=== PATIENT | male | born 1950 | race Caucasian/White ===

== ENCOUNTER 2016-12-22 13:55 | Emergency (ER) | payer OTHER ==
[~2016-12-22] VITALS: Ht 188 cm; Wt 81.0 kg
[~2016-12-22 13:55] MED LIST: PANT40TA4 PO
[2016-12-22 13:58] VITALS: Ht 188 cm; Wt 81.0 kg
[2016-12-22] MEDS ORDERED: CEFTRIAXONE 1 GM/50 ML (PMX) 50 ML IVPB ONE (15:00)
[2016-12-22] MEDS ORDERED: ASPI-664 PO (15:22)
[2016-12-22] MEDS ORDERED: OMEP40CA6 PO (15:22)
[2016-12-22 15:33] LABS: ADD SCAN DIFF NO
[2016-12-22 15:35] LABS: ABNORMAL IP MESSAGE 1; BASOPHILS % 0.4 % (0.0-2.0); EOSINOPHILS # 0.1 10^3/ul (0.0-0.5); EOSINOPHILS % 1.1 % (0.0-7.0); HEMATOCRIT 28.2 % (42.0-52.0); HEMOGLOBIN 8.1 g/dl (14.0-18.0); LYMPHOCYTES # 0.7 10^3/ul (0.8-2.9); LYMPHOCYTES % 8.8 % (15.0-51.0); MEAN CORPUSCULAR HEMOGLOBIN 19.6 pg (29.0-33.0); MEAN CORPUSCULAR HGB CONC 28.7 g/dl (32.0-37.0); MEAN CORPUSCULAR VOLUME 68.1 fl (82.0-101.0); MEAN PLATELET VOLUME 10.2 fl (7.4-10.4); MONOCYTE # 0.6 10^3/ul (0.3-0.9); MONOCYTES % 6.8 % (0.0-11.0); NEUTROPHIL # 6.7 10^3/ul (1.6-7.5); NEUTROPHILS % 82.2 % (39.0-77.0); PLATELET COUNT 539 10^3/UL (140-415); RED BLOOD COUNT 4.14 10^6/ul (4.70-6.10); RED CELL DISTRIBUTION WIDTH 18.9 % (11.5-14.5); WHITE BLOOD COUNT 8.2 10^3/ul (4.8-10.8)
[2016-12-22 15:45] LABS: INR 1.02; PROTIME 13.4 Sec (12.2-14.2)
[2016-12-22 15:46] LABS: ALBUMIN 3.9 g/dl (3.3-4.9); CHLORIDE 105 mmol/L (97-110); PARTIAL THROMBOPLASTIN TIME 25.6 Sec (25.0-35.0); POTASSIUM 4.1 mmol/L (3.5-5.1); SODIUM 143 mmol/L (135-144)
[2016-12-22 15:48] LABS: CREATININE 0.94 mg/dl (0.61-1.24)
[2016-12-22 15:49] LABS: ALANINE AMINOTRANSFERASE 27 IU/L (13-69); ALBUMIN/GLOBULIN RATIO 0.95; ALKALINE PHOSPHATASE 109 IU/L (42-121); ANION GAP 16 (8-16); ASPARTATE AMINO TRANSFERASE 19 IU/L (15-46); BLOOD UREA NITROGEN 25 mg/dl (7-20); CALCIUM 9.3 mg/dl (8.4-10.2); CARBON DIOXIDE 26 mmol/L (21-31); GLUCOSE 108 mg/dl (70-220)
[2016-12-22 16:04] LABS: ADD UMIC YES; URINE BILIRUBIN (Dip) NEGATIVE (NEGATIVE); URINE BLOOD (Dip) 1+ (NEGATIVE); URINE COLOR LT. YELLOW (YELLOW); URINE GLUCOSE (Dip) NEGATIVE (NEGATIVE); URINE KETONES (Dip) TRACE (NEGATIVE); URINE LEUKOCYTE ESTERASE (Dip) 1+ (NEGATIVE); URINE NITRITE (Dip) POSITIVE (NEGATIVE); URINE TOTAL PROTEIN (Dip) NEGATIVE (NEGATIVE); URINE UROBILINOGEN (Dip) 0.2 E.U./dL (0.1-1.0)
[2016-12-22 16:04] LABS: TROPONIN-I < 0.012 ng/ml (0.00-0.12)
[2016-12-22 16:20] LABS: BACTERIA,URINE FEW; URINE RBCS 0-2 /HPF (0)
[2016-12-22] MEDS ORDERED: IRON1TAB78 PO (16:20)
[2016-12-22] MEDS ORDERED: CEPH-443 PO (16:20)
[2016-12-22 16:32] VITALS: BP 141/87; PULSE 74; RESP 15; TEMP 98.1
--- NOTE | 2016-12-22 19:46 | ERD ---
ER Documentation Chief Complaint Date/Time DATE: 12/22/16 TIME: 19:44 Chief Complaint SENT BY PMD FOR LOW H &H HPI Patient is a 58-year-old male with no medical problems who presents with a low hemoglobin. The patient was sent by his primary doctor Dr. Duenas for an outpatient hemoglobin of 7.6. He denies bleeding. He has no chest pain, shortness of breath, or syncope. The patient has no pain with urination as his outpatient labs also showed a urinary tract infection. Upon review of old medical records the patient one previous visit on December 2015. ROS All systems reviewed and are negative except as per history of present illness. Medications Home Meds Active Scripts Cephalexin* (Keflex*) 500 Mg Capsule, 500 MG PO QID for 7 Days, CAP Prov:ABBEY CARMONA MD 12/22/16 Iron,Carbonyl/Vit C/Vit B12/Fa (IRON 100 PLUS TABLET) 1 Each Tablet, 1 EACH PO DAILY, #30 TAB Prov:ABBEY CARMONA MD 12/22/16 Reported Medications Aspirin* (Aspirin* EC) 81 Mg Tablet., 81 MG PO DAILY, TAB 12/22/16 Omeprazole* (Omeprazole*) 40 Mg Capsule.dr, 40 MG PO DAILY, #30 CAP 12/22/16 Discontinued Scripts Pantoprazole* (Pantoprazole*) 40 Mg Tabec, 40 MG PO BID@06,18 for 30 Days, 3 Refills Prov:TOBY SANTOS 12/31/15 Allergies Allergies: Coded Allergies: No Known Allergy (Unverified , 12/30/15) PMhx/Soc History of Surgery: Yes (FOOT SURGERY DUE TO FRACTURE 2013) Anesthesia Reaction: No Hx Neurological Disorder: Yes (STROKE 2011, NO DEFICIT) Hx Respiratory Disorders: No Hx Cardiac Disorders: No Hx Psychiatric Problems: No Hx Miscellaneous Medical Probl: Yes (anemia) Hx Alcohol Use: No Hx Substance Use: No Hx Tobacco Use: Yes (QUIT 6 YEARS AGO) Smoking Status: Former smoker FmHx Family History: diabetes Physical Exam Vitals Vital Signs Date Time Temp Pulse Resp B/P Pulse Ox O2 Delivery O2 Flow Rate FiO2 12/22/16 16:32 98.1 74 15 141/87 100 Room Air 12/22/16 13:58 98.1 95 18 152/69 98 Physical Exam Const: No acute distress Head: Atraumatic Eyes: Normal Conjunctiva ENT: Normal External Ears, Nose and Mouth. Neck: Full range of motion..~ No meningismus. Resp: Clear to auscultation bilaterally Cardio: Regular rate and rhythm, no murmurs Abd: Soft, non tender, non distended. Normal bowel sounds Skin: No petechiae or rashes Back: No midline or flank tenderness Ext: No cyanosis, or edema Neur: Awake and alert Psych: Normal Mood and Affect Result Diagram: 12/22/16 1510 12/22/16 1510 Results 24 hrs Laboratory Tests Test 12/22/16 15:10 12/22/16 15:47 Activated Partial Thromboplast Time 25.6Sec Alanine Aminotransferase (ALT/SGPT) 27IU/L Albumin 3.9g/dl Albumin/Globulin Ratio 0.95 Alkaline Phosphatase 109IU/L Anion Gap 16 Aspartate Amino Transf (AST/SGOT) 19IU/L Basophils # 0.010^3/ul Basophils % 0.4% Blood Urea Nitrogen 25mg/dl Calcium Level 9.3mg/dl Carbon Dioxide Level 26mmol/L Chloride Level 105mmol/L Creatinine 0.94mg/dl Direct Bilirubin 0.00mg/dl Eosinophils # 0.110^3/ul Eosinophils % 1.1% Globulin 4.10g/dl Glucose Level 108mg/dl Hematocrit 28.2% Hemoglobin 8.1g/dl INR International Normalized Ratio 1.02 Indirect Bilirubin 0.0mg/dl Lymphocytes # 0.710^3/ul Lymphocytes % 8.8% Mean Corpuscular Hemoglobin 19.6pg Mean Corpuscular Hemoglobin Concent 28.7g/dl Mean Corpuscular Volume 68.1fl Mean Platelet Volume 10.2fl Monocytes # 0.610^3/ul Monocytes % 6.8% Neutrophils # 6.710^3/ul Neutrophils % 82.2% Nucleated Red Blood Cells # 0.010^3/ul Nucleated Red Blood Cells % 0.0/100WBC Platelet Count 25107^3/UL Potassium Level 4.1mmol/L Prothrombin Time 13.4Sec Prothrombin Time Ratio 1.0 Red Blood Count 4.1410^6/ul Red Cell Distribution Width 18.9% Sodium Level 143mmol/L Total Bilirubin 0.0mg/dl Total Protein 8.0g/dl Troponin I < 0.012ng/ml White Blood Count 8.210^3/ul Urine Bacteria FEW Urine Bilirubin NEGATIVE Urine Calcium Oxalate Crystals FEW Urine Clarity SLIGHTLY CLOUDY Urine Color LT. YELLOW Urine Epithelial Cells OCCASIONAL Urine Glucose NEGATIVE% Urine Hemoglobin 1+ Urine Ketones TRACE Urine Leukocyte Esterase 1+ Urine Microscopic RBC 0-2/HPF Urine Microscopic WBC 10-25/HPF Urine Nitrite POSITIVE Urine Specific [place] >=1.030 Urine Total Protein NEGATIVE Urine Urobilinogen 0.2 E.U./dL Urine pH 5.0 Current Medications Medications (Trade) Dose Ordered Sig/Analy Route PRN Reason Start Time Stop Time Status Last Admin Dose Admin Ceftriaxone Sodium (Rocephin) 50 ml @ 100 mls/hr ONCE ONCE IVPB 12/22/16 15:00 12/22/16 15:29 DC 12/22/16 15:14 Procedures/MDM EKG read by me: Rate/Rhythm: Regular rate and rhythm at a normal rate Intervals: Normal Impression: No evidence of ischemia or arrhythmia Patient is a 66-year-old male presents with anemia. The patient has a hemoglobin of 8.1 at this time and does not require transfusion. He has no symptoms. He denies any bleeding. The patient will be treated with ceftriaxone for urine infection and then Keflex as an outpatient. The patient will be given a prescription for iron as well to raise his hemoglobin. He can follow-up with his primary doctor within 24-48 hours for reevaluation. He can return sooner for any worsening symptoms. I doubt significant GI bleed at this time and this is most likely anemia of chronic disease. Departure Diagnosis: Primary Impression: Cystitis Additional Impression: Anemia Anemia type: unspecified type Qualified Code: D64.9 - Anemia, unspecified type Condition: Fair Patient Instructions: Anemia, Cystitis Additional Instructions: Llame al doctor MAANA y senait juliano ZEN PARA DENTRO DE 1-2 TREVINO.Dgale a la secretaria que nosotros le instruimos hacer esta zen.Avise o llame si palacio condicin se empeora antes de la zen. Regresa aqui si peor o no mejor. ABBEY CARMONA MD Dec 22, 2016 19:46
== END 2016-12-22 16:35 | disposition home or self-care (01) ==
LOC: E/R 13:55
DX: N30.90 Cystitis, unspecified without hematuria (principal); Z79.82 Long term (current) use of aspirin; Z87.891 Personal history of nicotine dependence
CPT/HCPCS: 36415; 80053; 81001; 84484; 85025; 85610; 85730; 86850; 86900; 86901; 87086; 96374; 99284; J0696; 81003